=== PATIENT | male | born 1975 | race Caucasian/White ===

== ENCOUNTER 2016-05-05 08:19 | Emergency (ER) | payer OTHER ==
[2016-05-05 08:23] VITALS: BP 177/97; PULSE 98; RESP 20; TEMP 97
[2016-05-05] MEDS ORDERED: oxyCODONE-APAP 7.5-325MG 1 EACH TAB PO STA (08:42)
[2016-05-05] MEDS ORDERED: KETOROLAC 60 MG/2 ML VIAL IM STA (08:42)
--- NOTE | 2016-05-05 08:46 | ED ---
Extremity Problem HPI - General Chief complaint: Extremity Problem,Nontraumatic Stated complaint: hip pain Time Seen by Provider: 05/05/16 08:29 Source: patient, RN notes reviewed Mode of arrival: ambulatory Limitations: no limitations - History of Present Illness Initial comments: 41-year-old male presents emergency Department with chief complaint of left hip pain. Patient had ongoing left hip pain after surgeries performed by Dr. Crawford to his left hip. Patient states he had pain from osteoporosis arthritis changes. Patient states he has surgery last year February and again in September for revision. Patient states she's had 2 different approaches to his left hip surgery. Patient states she's having ongoing pain states it feels swollen. Patient states that he is totally of bursitis was placed on Medrol Dosepak and had injections with no help. Patient states she does not have any his pain medication at this time. Patient has been referred to Dr. Dobson's office for pain management. Patient denies any paresthesias of his states that for areas very painful. Denies any redness denies fever, chills. - Related Data Home Medications Medication Instructions Recorded Confirmed Dapsone 100 mg PO DAILY 07/21/13 05/05/16 Gabapentin 800 mg PO BID 06/09/15 05/05/16 Lisinopril [Prinivil] 20 mg PO DAILY 06/09/15 05/05/16 Meloxicam [Mobic] 7.5 mg PO DAILY 06/09/15 05/05/16 Multivitamins, Thera [Multivitamin] 1 tab PO DAILY 08/08/15 05/05/16 Previous Rx's Medication Instructions Recorded HYDROcodone/APAP 10-325MG [[place] 1 tab PO Q6H PRN #20 tab 05/05/16 10-325] Hydrocodone/Acetaminophen [[place] 1 tab PO Q6HR PRN #20 tab 05/05/16 5-325] Allergies Allergy/AdvReac Type Severity Reaction Status Date / Time No Known Allergies Allergy Verified 05/05/16 08:23 Review of Systems ROS Statement: Those systems with pertinent positive or pertinent negative responses have been documented in the HPI. ROS Other: All systems not noted in ROS Statement are negative. Past Medical History Past Medical History: Hypertension, Osteoarthritis (OA), Pneumonia, Respiratory Disorder Additional Past Medical History / Comment(s): arthritis, bulging disc in back X 3, shattered Rt. foot r/t injury, diverticulitis History of Any Multi-Drug Resistant Organisms: None Reported, MRSA Date of last positivie culture/infection: 2012 MDRO Source:: wound on abdomen Past Surgical History: Hernia Repair, Joint Replacement Additional Past Surgical History / Comment(s): nasal surgery Past Anesthesia/Blood Transfusion Reactions: Previous Problems w/ Anesthesia Additional Past Anesthesia/Blood Transfusion Reaction / Comment(s): Awoke before surgery done x2 Past Psychological History: Anxiety, Depression, Panic Disorder Smoking Status: Former smoker Past Alcohol Use History: None Reported Past Drug Use History: None Reported - Past Family History Father Family Medical History: Coronary Artery Disease (CAD), Deep Vein Thrombosis (DVT ) Mother Family Medical History: Cancer Additional Family Medical History / Comment(s): colon CA, lung CA General Exam Limitations: no limitations General appearance: alert, in no apparent distress Respiratory exam: Present: normal lung sounds bilaterally. Absent: respiratory distress, wheezes, rales, rhonchi, stridor Cardiovascular Exam: Present: regular rate, normal rhythm, normal heart sounds. Absent: systolic murmur, diastolic murmur, rubs, gallop, clicks Extremities exam: Present: other (Left hip. 2 large surgical incisions well- healed there is no erythema there is mild swelling over the lateral aspect of the left hip, leg region over the region of the bursa. Patient's legs neurovascular intact patient does have mild discomfort with range of motion. No erythema no warmth) Course Vital Signs 05/05/16 08:21 Temperature 97.0 F L Pulse Rate 98 Respiratory 20 Rate Blood Pressure 177/97 O2 Sat by Pulse 99 Oximetry Medical Decision Making - Medical Decision Making 41-year-old male presented for left hip pain. Patient has chronic hip pain. Patient is requesting pain medication and maps is not short recent prescriptions filled. Patient be given pain medication. Patient will follow- up with orthopedics. Return parameters discussed. Disposition Clinical Impression: Left hip pain Disposition: HOME SELF-CARE Condition: Stable Instructions: Hip Pain (ED) Additional Instructions: Please return to the Emergency Department if symptoms worsen or any other concerns. Prescriptions: HYDROcodone/APAP 10-325MG [[place] 10-325] 1 tab PO Q6H PRN #20 tab PRN Reason: pain Hydrocodone/Acetaminophen [[place] 5-325] 1 tab PO Q6HR PRN #20 tab PRN Reason: Pain Time of Disposition: 09:23
--- NOTE | 2016-05-05 09:15 | XR ---
EXAMINATION TYPE: XR Hip LT and AP Pelvis DATE OF EXAM: 05/05/2016 9:03 AM COMPARISON: NONE HISTORY: Pain TECHNIQUE: A single AP view of the pelvis is obtained. Two views of the left hip are obtained. FINDINGS: Arthritic change involving the right hip is no evidence for surgical change involving the l eft hip. Pelvis structures are intact. SI joints symmetric. Rounded lucency overlying the acetabular rim. IMPRESSION: 1. No acute fracture. Postsurgical change noted. Round lucency along the acetabular roof is nonspecif ic could be correlated with follow-up bone scan.
== END 2016-05-05 09:29 | disposition home or self-care (01) ==
LOC: EC 08:19
DX: M25.552 Pain in left hip (principal); G89.29 Other chronic pain; I10 Essential (primary) hypertension; M19.90 Unspecified osteoarthritis, unspecified site; M81.0 Age-related osteoporosis without current pathological fracture; Z79.1 Long term (current) use of non-steroidal anti-inflammatories (NSAID); Z79.899 Other long term (current) drug therapy; Z87.891 Personal history of nicotine dependence
CPT/HCPCS: 99283; 96372; 73502; J1885

== ENCOUNTER 2016-09-12 09:39 | Emergency (ER) | payer OTHER ==
--- NOTE | 2016-09-12 10:22 | ED ---
General Adult HPI - General Chief complaint: Extremity Injury, Lower Stated complaint: post op problems, pain Time Seen by Provider: 09/12/16 10:05 Source: patient, RN notes reviewed Mode of arrival: ambulatory Limitations: no limitations - History of Present Illness Initial comments: Patient 41-year-old male significant past medical history for hip surgery approximately 5 weeks ago, who presents emergency room today with chief complaint of pain to the left hip area. He does admit that he saw his orthopedic doctor this morning. States that he was advised by the orthopedic doctor follow-up with the family doctor or come here to the emergency room for his pain. He does admit that he's felt that there has been some swelling to the incision site. He does admit that he's been having pain since surgery. States having difficult time with activities during the day due to pain with movement. Patient denies any injury or trauma. He denies any other complaints or associated symptoms. Does admit to a history of 2 previous hip replacements on the side with a "revision" that was performed 5 weeks ago. Patient denies any recent fever, chills, shortness of breath, chest pain, back pain, abdominal pain, nausea or vomiting, numbness or tingling, dysuria or hematuria, constipation or diarrhea, headaches or visual changes, or any other complaints. - Related Data Home Medications Medication Instructions Recorded Confirmed Dapsone 100 mg PO DAILY 07/21/13 05/05/16 Gabapentin 800 mg PO BID 06/09/15 05/05/16 Lisinopril [Prinivil] 20 mg PO DAILY 06/09/15 05/05/16 Meloxicam [Mobic] 7.5 mg PO DAILY 06/09/15 05/05/16 Multivitamins, Thera [Multivitamin] 1 tab PO DAILY 08/08/15 05/05/16 Previous Rx's Medication Instructions Recorded HYDROcodone/APAP 10-325MG [[place] 1 tab PO Q6H PRN #20 tab 05/05/16 10-325] Hydrocodone/Acetaminophen [[place] 1 tab PO Q6HR PRN #20 tab 05/05/16 5-325] Hydrocodone/Acetaminophen [[place] 1 each PO Q6HR PRN #20 tab 09/12/16 5-325] Naproxen 500 mg PO BID #20 tablet 09/12/16 Allergies Allergy/AdvReac Type Severity Reaction Status Date / Time azithromycin Allergy Swelling Verified 09/12/16 09:52 ibuprofen [From Motrin] Allergy Swelling Verified 09/12/16 09:52 Review of Systems ROS Statement: Those systems with pertinent positive or pertinent negative responses have been documented in the HPI. ROS Other: All systems not noted in ROS Statement are negative. Past Medical History Past Medical History: Hypertension, Osteoarthritis (OA), Pneumonia, Respiratory Disorder Additional Past Medical History / Comment(s): arthritis, bulging disc in back X 3, shattered Rt. foot r/t injury, diverticulitis History of Any Multi-Drug Resistant Organisms: None Reported, MRSA Date of last positivie culture/infection: 2012 MDRO Source:: wound on abdomen Past Surgical History: Hernia Repair, Joint Replacement, Orthopedic Surgery Additional Past Surgical History / Comment(s): nasal surgery, left hip Past Anesthesia/Blood Transfusion Reactions: Previous Problems w/ Anesthesia Additional Past Anesthesia/Blood Transfusion Reaction / Comment(s): Awoke before surgery done x2 Past Psychological History: Anxiety, Depression, Panic Disorder Smoking Status: Former smoker Past Alcohol Use History: None Reported Past Drug Use History: None Reported - Past Family History Father Family Medical History: Coronary Artery Disease (CAD), Deep Vein Thrombosis (DVT ) Mother Family Medical History: Cancer Additional Family Medical History / Comment(s): colon CA, lung CA General Exam - General Exam Comments Initial Comments: General: The patient is awake and alert, in no distress, and does not appear acutely ill. Neck: The neck is supple, there is no tenderness or JVD. Cardiovascular: There is a regular rate and rhythm. No murmur, rub or gallop is appreciated. Respiratory: Lungs are clear to auscultation, respirations are non-labored, breath sounds are equal. No wheezes, stridor, rales, or rhonchi. Musculoskeleta/skin: Patient does have surgical incision over the lateral aspect of the left hip with old surgical incision anteriorly. Both appear to be healing well. There is no redness or erythema. No area of fluctuance or sign of infection. Patient does show good range of motion. Sensations are intact. Pulses equal bilaterally 2+. Strength is 5/5. Neurological: A&O x 3. CN II-XII intact, There are no obvious motor or sensory deficits. Coordination appears grossly intact. Speech is normal. Psychiatric: Normal mood and affect. Limitations: no limitations Course Vital Signs 09/12/16 09:46 Temperature 97.7 F Pulse Rate 102 H Respiratory 18 Rate Blood Pressure 158/99 O2 Sat by Pulse 95 Oximetry Medical Decision Making - Medical Decision Making Case discussed in detail with attending physician Dr. Hernández. X-ray reviewed and are negative for any acute abnormality. Results were discussed with the patient. Patient has no sign of infection on exam. Patient was seen by orthopedics today advised follow family doctor to come here for dictation. Patient does admit that he usually takes Percocet. Will be given a prescription of [place] to he can follow-up the family doctor. Also be given naproxen states had this in the past. He requested Toradol shot here in emergency room. Patient will be discharged home advised follow-up. Disposition Clinical Impression: Hip pain, left Disposition: HOME SELF-CARE Condition: Good Instructions: Hip Pain (ED) Additional Instructions: Please use medication as discussed. Please follow-up with orthopedic/family doctor in the next 2 days of symptoms have not improved. Please return to emergency room if the symptoms increase or worsen or for any other concerns. Prescriptions: Hydrocodone/Acetaminophen [[place] 5-325] 1 each PO Q6HR PRN #20 tab PRN Reason: Pain Naproxen 500 mg PO BID #20 tablet Referrals: Gerson Leblanc Jr, DO [Primary Care Provider] - 1-2 days Time of Disposition: 11:22
--- NOTE | 2016-09-12 10:42 | XR ---
EXAMINATION TYPE: XR Hip LT and AP Pelvis , 4 VIEWS DATE OF EXAM ORDERED: 09/12/2016 HISTORY: Pain. COMPARISON: Previous study dated 05/05/2016. FINDINGS: There is a longstem left hip arthroplasty in place unchanged in appearance from previous. Osseous structures about the pelvis are normal. No fractures are seen. IMPRESSION: STATUS POST LEFT HIP ARTHROPLASTY.
[2016-09-12] MEDS ORDERED: KETOROLAC 60 MG/2 ML VIAL IM STA (11:21)
[2016-09-12 11:57] VITALS: BP 147/89; PULSE 99; RESP 16; TEMP 96.9
== END 2016-09-12 11:57 | disposition home or self-care (01) ==
LOC: EC 09:39
DX: M25.552 Pain in left hip (principal); I10 Essential (primary) hypertension; M19.90 Unspecified osteoarthritis, unspecified site; F41.9 Anxiety disorder, unspecified; Z87.891 Personal history of nicotine dependence; Z79.1 Long term (current) use of non-steroidal anti-inflammatories (NSAID); Z79.899 Other long term (current) drug therapy; Z88.1 Allergy status to other antibiotic agents; Z88.6 Allergy status to analgesic agent; Z98.890 Other specified postprocedural states; Z96.642 Presence of left artificial hip joint
CPT/HCPCS: 73502; 99283; 96372; J1885

== ENCOUNTER 2016-10-06 12:27 | Emergency (ER) | payer OTHER ==
[2016-10-06 13:13] VITALS: BP 142/88; PULSE 86; RESP 18; TEMP 97.1
[2016-10-06] MEDS ORDERED: KETOROLAC 60 MG/2 ML VIAL IM STA (13:42)
--- NOTE | 2016-10-06 13:42 | ED ---
General Adult HPI - General Chief complaint: Extremity Injury, Lower Stated complaint: Left Hip Pain-Post Op 08/09 Time Seen by Provider: 10/06/16 13:19 Source: patient, RN notes reviewed Mode of arrival: ambulatory Limitations: no limitations - History of Present Illness Initial comments: Patient 41-year-old male who presents emergency room today with chief complaint of a chronic left hip pain. Does admit that he's had multiple surgeries on this. States that he seen Dr. Weems. States he does not want go back to Dr. Crawford anymore. He feels that the surgeries were not successful. He states been trying to follow up with a new family physician and get a referral to were new orthopedic doctor. He states that he's been under a lot of stress as well because he has been looking for his daughter. He states his ex- took his daughter from him. Patient states he was on Percocet in the past for this pain. States she's not had these over a month. He denies any new injuries or complaints. Patient denies any recent fever, chills, shortness of breath, chest pain, back pain, abdominal pain, nausea or vomiting, numbness or tingling, dysuria or hematuria, constipation or diarrhea, headaches or visual changes, or any other complaints. - Related Data Home Medications Medication Instructions Recorded Confirmed Dapsone 100 mg PO DAILY 07/21/13 10/06/16 Lisinopril [Prinivil] 20 mg PO DAILY 06/09/15 10/06/16 ALPRAZolam [Xanax] 1 mg PO BID 10/06/16 10/06/16 Acetaminophen [Tylenol Arthritis] 1,950 mg PO DAILY PRN 10/06/16 10/06/16 Cetirizine HCl [Zyrtec] 10 mg PO DAILY 10/06/16 10/06/16 Meloxicam [Mobic] 15 mg PO BID 10/06/16 10/06/16 Pregabalin [Lyrica] 100 mg PO BID 10/06/16 10/06/16 oxyCODONE-APAP 10-325MG [Percocet 1 tab PO Q4H PRN 10/06/16 10/06/16 10-325 mg] Previous Rx's Medication Instructions Recorded Acetaminophen-Codeine 300-30mg 1 each PO Q6H PRN #6 tablet 10/06/16 [Tylenol #3] Allergies Allergy/AdvReac Type Severity Reaction Status Date / Time azithromycin Allergy Swelling Verified 10/06/16 13:23 ibuprofen [From Motrin] Allergy Swelling Verified 10/06/16 13:23 Review of Systems ROS Statement: Those systems with pertinent positive or pertinent negative responses have been documented in the HPI. ROS Other: All systems not noted in ROS Statement are negative. Past Medical History Past Medical History: Hypertension, Osteoarthritis (OA), Pneumonia, Respiratory Disorder Additional Past Medical History / Comment(s): arthritis, bulging disc in back X 3, shattered Rt. foot r/t injury, diverticulitis History of Any Multi-Drug Resistant Organisms: None Reported, MRSA Date of last positivie culture/infection: 2012 MDRO Source:: wound on abdomen Past Surgical History: Hernia Repair, Joint Replacement, Orthopedic Surgery Additional Past Surgical History / Comment(s): nasal surgery, left hip Past Anesthesia/Blood Transfusion Reactions: Previous Problems w/ Anesthesia Additional Past Anesthesia/Blood Transfusion Reaction / Comment(s): Awoke before surgery done x2 Past Psychological History: Anxiety, Depression, Panic Disorder Smoking Status: Former smoker Past Alcohol Use History: None Reported Past Drug Use History: None Reported - Past Family History Father Family Medical History: Coronary Artery Disease (CAD), Deep Vein Thrombosis (DVT ) Mother Family Medical History: Cancer Additional Family Medical History / Comment(s): colon CA, lung CA General Exam - General Exam Comments Initial Comments: General: The patient is awake and alert, in no distress, and does not appear acutely ill. Neck: The neck is supple, there is no tenderness or JVD. Cardiovascular: There is a regular rate and rhythm. No murmur, rub or gallop is appreciated. Respiratory: Lungs are clear to auscultation, respirations are non-labored, breath sounds are equal. No wheezes, stridor, rales, or rhonchi. Musculoskeletal: Previous surgical incision over the left hip. No sign of infection. Shows good range of motion. Sensations are intact pulses equal bilaterally 2+. Neurological: A&O x 3. CN II-XII intact, There are no obvious motor or sensory deficits. Coordination appears grossly intact. Speech is normal. Skin: Skin is warm and dry and no rashes or lesions are noted. Psychiatric: Normal mood and affect. Limitations: no limitations Course Vital Signs 10/06/16 13:08 Temperature 97.1 F L Pulse Rate 86 Respiratory 18 Rate Blood Pressure 142/88 O2 Sat by Pulse 92 L Oximetry Medical Decision Making - Medical Decision Making During initial interview patient states he has not seen Dr. Lal quite some time. A [employer] on a prescription system report was reviewed revealing that he did receive a prescription from his orthopedic doctor on September 18 for 80 tablets of [place]. Advised patient that we could not fill a [place] prescription here today. Advised him we will give him 6 tablets of Tylenol with codeine. He needs to follow up with a new family physician or orthopedic doctor for further evaluation and pain medications. Disposition Clinical Impression: Chronic hip pain Disposition: HOME SELF-CARE Condition: Good Instructions: Chronic Pain (ED) Additional Instructions: Please use medication as prescribed and follow-up with family doctor or orthopedic doctor for further evaluation and pain medicines. Please return to emergency room if the symptoms increase or worsen or for any other concerns. Prescriptions: Acetaminophen-Codeine 300-30mg [Tylenol #3] 1 each PO Q6H PRN #6 tablet PRN Reason: Pain Referrals: Kyra Simmons MD [Primary Care Provider] - 1-2 days Time of Disposition: 13:40
== END 2016-10-06 14:04 | disposition home or self-care (01) ==
LOC: EC 12:27
DX: M25.552 Pain in left hip (principal); G89.29 Other chronic pain; I10 Essential (primary) hypertension; M19.90 Unspecified osteoarthritis, unspecified site; F32.9 Major depressive disorder, single episode, unspecified; F41.9 Anxiety disorder, unspecified; F41.0 Panic disorder [episodic paroxysmal anxiety]; Z87.891 Personal history of nicotine dependence; Z79.1 Long term (current) use of non-steroidal anti-inflammatories (NSAID); Z79.899 Other long term (current) drug therapy; Z88.1 Allergy status to other antibiotic agents; Z88.6 Allergy status to analgesic agent
CPT/HCPCS: 99283; 96372; J1885

== ENCOUNTER → 2016-12-11 | Outpatient (CLI) | payer OTHER ==
--- NOTE | 2016-12-11 10:40 | MR ---
EXAMINATION TYPE: MR thoracic spine wo con DATE OF EXAM: 12/11/2016 COMPARISON: NONE HISTORY: Mid pack pain CONTRAST: Performed utilizing 0 mL intravenous Gadavist gadolinium contrast. TECHNIQUE: Multiplanar, multiecho imaging on a 3.0 [place] magnet is performed through the thoracic spi ne. Spinal cord maintains normal signal through its visualized course. Vertebral body alignment is normal. Vertebral body heights are preserved. Disc heights are preserved. Disc hydration levels are preserved. T11-12: There is mild disc bulge with mild anterior thecal sac flattening. No cord contact is evident . No spinal canal stenosis is present. No spinal canal stenosis is evident through the remaining thoracic spine. IMPRESSIONS: 1. Mild disc bulge T11-T12 with anterior thecal sac flattening without stenosis or cord contact. 2. Otherwise normal MRI thoracic spine
== END | disposition home or self-care (01) ==
LOC: RADMRIMAIN 08:06
PROVIDERS: ATTEND Psychiatry & Neurology Pain Medicine
DX: M51.24 Other intervertebral disc displacement, thoracic region (principal)
CPT/HCPCS: 72146

== ENCOUNTER → 2017-05-02 | Outpatient (CLI) | payer OTHER ==
[2017-05-02 14:09] VITALS: BP 128/87; PULSE 95; RESP 16
--- NOTE | 2017-05-02 14:54 | P.PN ---
Progress Note - Text Progress Note Date: 05/02/17 This is a 42-year-old morbidly obese male with history of 2 surgeries on the left hip with left hemiarthroplasty and chronic left hip pain postoperatively. He had his surgery on the left hip in 2013. He also has chronic lower back pain that goes across his lower back and gets worse by walking and standing. The patient denies any bowel or bladder dysfunction. The pain keeps her up at night and it does affect his daily activities significantly the patient is on disability and he used to be a combo welder. He has full custody of his 12-year-old daughter. He has been on [place] 10 mg 3 times a day that has helped his pain. He said that he tried to get into different orthopedic surgeons but they would not accept him because of the previous complications that he had from his left hip hemiarthroplasty. By physical exam he is morbidly obese alert oriented 3 uses cane for ambulation and he has difficulty climbing up on the examination table because of his pain. He has well-healed scars from his left hip hemiarthroplasty one on the lateral aspect of the left hip and one on the anterior aspect of it. There is mild allodynia to touch on the anterior hip incision. He has decreased muscle strength in the left lower extremity due to his pain and also he has absent left knee reflex. His ankle reflexes are both absent. He has significant tenderness in the lumbar paravertebral area bilaterally more on the right side than the left side. Lungs are clear to auscultation heart is regular no murmurs. Straight leg raising test negative bilaterally. He has significant tenderness on the lateral aspect of his left hip and also in the anterior thigh area the left side. Today I will give the patient prescription for [place] 7.5 mg 3 times a day and then I will refer him to see Dr. Orozco for opioid management. I think he might benefit from getting a diagnostic lumbar medial branch block and RFA in the future. We will do urine drug screen on the patient today His lumbar spine MRI was reviewed today and showed mild facet arthropathy at L3- 4 or L4 5 and degenerative disc disease. The patient will be seen for the above-mentioned procedure.
== END | disposition home or self-care (01) ==
LOC: PNWHC3 13:32
PROVIDERS: ATTEND Anesthesiology
DX: G89.29 Other chronic pain (principal); G89.28 Other chronic postprocedural pain; M54.5 Low back pain; M51.36 Other intervertebral disc degeneration, lumbar region; M46.86 Other specified inflammatory spondylopathies, lumbar region; E66.01 Morbid (severe) obesity due to excess calories; Z79.891 Long term (current) use of opiate analgesic; Z98.890 Other specified postprocedural states
CPT/HCPCS: 80307; 80356; 99211

== ENCOUNTER 2017-06-03 05:53 | Day surgery (SDC) | payer OTHER ==
[2017-05-29 11:56] VITALS: BMI 37.1
[~2017-06-03 05:53] MED LIST: LACTATED RINGERS 1,000 ML IV SCH
[2017-06-03 06:23] VITALS: RESP 16; TEMP 98.1
[2017-06-03] MEDS ORDERED: IV FLUID CONTINUATION 1,000 ML IV ONE (07:36)
--- NOTE | 2017-06-03 07:51 | P.PCN ---
Date of Procedure: 06/03/17 Surgeon: Imtiaz Townsend Pathology: none sent Condition: stable Disposition: PACU Description of Procedure: PREOPERATIVE DIAGNOSIS : 1- Lumbar spondylosis with Facet Arthropathy without myelopathy . 2- Lumber degenerative disc disease POSTOPERATIVE DIAGNOSIS: 1- Lumbar spondylosis with Facet Arthropathy without myelopathy . 2- Lumber degenerative disc disease PROCEDURE: Diagnostic bilateral L3 -4 , L4 -5 , and L5-S1 medial branch block under fluoroscopy ANESTHESIA: No local ; IV sedation with Versed 2 mg EBL: Minimal COMPLICATION: None. IV FLUIDS: 100 mL of normal saline. PROCEDURE INDICATION: Chronic low back pain secondary to Facet arthropathy unresponsive to conservative treatment. PROCEDURE DESCRIPTION: the patient was seen and identified in the preop holding area , risks and benefits and possible complications of the procedure and alternative were discussed with the patient, and the patient agreed to proceed with the procedure and signed the consent IV was started and vital signs monitored during the procedure and fluoroscopy was used to maximize the benefit and accuracy of the needle placement, and sedation was given to decrease patient anxiety, patient was taken to the procedure room and placed in prone position vital signs monitored in the back prepped with chlorhexidine X3 then under strict sterile technique using a right oblique fluoroscopy ,the junction of the transverse process and the superior articulating process of the right L3- 4 , L4- 5, and L5-S1 vertebra which corresponding to the fluoroscopy image of the eye of the Ankit dog on the block side for the medial branches and subsequently , after local infiltration of skin and subcu tissuies with lidocaine 1% one mL at each level ,then 25- gauge 3.5inch Quincke-type needles , each one of them placed at the junction of the base of the transverse process and the superior articular process at the appropriate level, and the needle was advanced until the periosteum contacted, needle placement confirmed with AP oblique and lateral view and after appropriate needle placement confirmed, and after negative aspiration for heme and CSF and there was no paresthesia 1-1/2 mL of Marc[place] 0.5% mixed with 40 mg Kenalog , then half mL injected at each level after negative aspiration the needle subsequently removed and the same procedure repeated for the left side at left side at L3-4, L4- 5 and L5-S1 levels. At the end of the procedure and the needles removed and a bandage applied after the skin was cleaned the cleaning solution patient taken to recovery room in stable condition and monitors in the recovery room for 20-30 minutes and discharged home in stable condition after discharge criteria met and patient will follow up with the pain clinic in 2-4 weeks
[2017-06-03 08:00] VITALS: BP 153/92; PULSE 99
--- NOTE | 2017-06-03 08:51 | FL ---
EXAMINATION TYPE: FL guided pain mgmt statistic DATE OF EXAM: 06/03/2017 HISTORY: Flouroscopy time 47 seconds of fluoroscopy provided. IMPRESSION: 1. Fluoroscopy time.
== END 2017-06-03 08:21 | disposition home or self-care (01) ==
LOC: ORPAIN 05:53
PROVIDERS: ATTEND Anesthesiology
DX: G89.29 Other chronic pain (principal); M47.816 Spondylosis without myelopathy or radiculopathy, lumbar region; M51.36 Other intervertebral disc degeneration, lumbar region; Z88.1 Allergy status to other antibiotic agents
CPT/HCPCS: 64493; 64494; 64495; J2250; J3301; 99152

== ENCOUNTER → 2017-07-08 | Day surgery (SDC) | payer OTHER ==
[2017-07-04 11:20] VITALS: BMI 39.4
[~2017-07-08] MED LIST changes: +KETOROLAC 30 MG/ML 1 ML VIAL IVP STA; +LACTATED RINGERS 1,000 ML IV ONE; +LIDOCAINE 1% 20 ML VIAL (10MG/ML) FOR IV START INTRADERMA ONE
[2017-07-08 07:35] VITALS: RESP 16; TEMP 97.1
--- NOTE | 2017-07-08 08:11 | P.PCN ---
Date of Procedure: 07/08/17 Surgeon: Mimi Diamond Description of Procedure: PREOPERATIVE DIAGNOSIS : 1- Lumbar spondylosis with Facet Arthropathy without myelopathy . 2- Lumber degenerative disc disease POSTOPERATIVE DIAGNOSIS: 1- Lumbar spondylosis with Facet Arthropathy without myelopathy . 2- Lumber degenerative disc disease PROCEDURE: Diagnostic bilateral L3 -4 , L4 -5 , and L5-S1 medial branch block under fluoroscopy#2 ANESTHESIA: No local ; IV conscious sedation with Versed 2 mg EBL: Negligible COMPLICATION: None. IV FLUIDS: 100 mL of normal saline. PROCEDURE INDICATION: Chronic low back pain secondary to Facet arthropathy unresponsive to conservative treatment. PROCEDURE DESCRIPTION: the patient was seen and identified in the preop holding area , risks and benefits and possible complications of the procedure and alternative were discussed with the patient, and the patient agreed to proceed with the procedure and signed the consent . The patient had a 35% of pain relief after the last procedure and this relief lasted only for half an hour immediately after the procedure as the patient states. IV was started and vital signs monitored during the procedure and fluoroscopy was used to maximize the benefit and accuracy of the needle placement, and sedation was given to decrease patient anxiety, patient was taken to the procedure room and placed in prone position vital signs monitored in the back prepped with chlorhexidine X3 then under strict sterile technique using a right oblique fluoroscopy ,the junction of the transverse process and the superior articulating process of the right L3- 4 , L4- 5, and L5-S1 vertebra which corresponding to the fluoroscopy image of the eye of the Ankit dog on the block side for the medial branches and subsequently , after local infiltration of skin and subcu tissuies with lidocaine 1% one mL at each level ,then 22- gauge 3.5inch Quincke-type needles , each one of them placed at the junction of the base of the transverse process and the superior articular process at the appropriate level, and the needle was advanced until the periosteum contacted, needle placement confirmed with AP oblique and lateral view and after appropriate needle placement confirmed, and after negative aspiration for heme and CSF and there was no paresthesia 1-1/2 mL of Marcaine 0.5% mixed with 40 mg Kenalog , then half mL injected at each level after negative aspiration the needle subsequently removed and the same procedure repeated for the left side at left side at L3-4, L4- 5 and L5-S1 levels. At the end of the procedure and the needles removed and a bandage applied after the skin was cleaned the cleaning solution patient taken to recovery room in stable condition and monitors in the recovery room for 20-30 minutes and discharged home in stable condition after discharge criteria met and patient will follow up with the pain clinic in 2-4 weeks.
[2017-07-08 08:29] VITALS: BP 128/81; PULSE 94
--- NOTE | 2017-07-08 08:52 | FL ---
EXAMINATION TYPE: FL guided pain mgmt statistic DATE OF EXAM: 07/08/2017 HISTORY: Flouroscopy time 11 seconds of fluoroscopy provided. IMPRESSION: 1. Fluoroscopy time.
== END ==
LOC: ORPAIN 06:17
PROVIDERS: ATTEND Anesthesiology
DX: G89.29 Other chronic pain (principal); M47.816 Spondylosis without myelopathy or radiculopathy, lumbar region; M51.36 Other intervertebral disc degeneration, lumbar region; I10 Essential (primary) hypertension; Z88.6 Allergy status to analgesic agent; Z88.1 Allergy status to other antibiotic agents
CPT/HCPCS: 64493; 64494; 64495; J2250; J3301; J1885; 99152